=== PATIENT | male | born 1985 | race African-American/Black ===

== ENCOUNTER 2017-03-09 21:47 | Emergency (ER) | payer OTHER ==
[~2017-03-09] VITALS: Ht 165.1 cm; Wt 63.0 kg
[2017-03-09 21:56] VITALS: BP 129/77
[2017-03-09] MEDS ORDERED: ACETAMINOPHEN 650 MG/20.3 ML UDC PO ONE (23:00)
[2017-03-09] MEDS ORDERED: ACETAMINOPHEN 325 MG TABLET ONE (23:01)
== END 2017-03-09 23:10 | disposition home or self-care (01) ==
LOC: ER 21:51
DX: R51 Headache (principal); B86 Scabies; F31.9 Bipolar disorder, unspecified; F20.9 Schizophrenia, unspecified
CPT/HCPCS: A4606; Z7610

== ENCOUNTER 2018-03-28 16:22 | Emergency (ER) | payer OTHER ==
[~2018-03-28] VITALS: Ht 167.6 cm; Wt 65.8 kg
[2018-03-28 16:22] VITALS: BP 125/75
--- NOTE | 2018-03-28 17:07 | NUR ---
PT AGITATED REFUSING TO LEAVE ED. 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 SUPP AWARE.
--- NOTE | 2018-03-28 17:19 | NUR ---
PT REFUSED TO SIGN ACI.
== END 2018-03-28 17:19 | disposition home or self-care (01) ==
LOC: ER 16:26
DX: B85.0 Pediculosis due to Pediculus humanus capitis (principal); F31.9 Bipolar disorder, unspecified; F20.9 Schizophrenia, unspecified

== ENCOUNTER 2019-12-25 13:51 | Emergency (ER) | payer OTHER ==
[~2019-12-25] VITALS: Ht 167.6 cm; Wt 72.6 kg
--- NOTE | 2019-12-25 14:05 | NUR ---
BIBS FROM [facility] LOD[facility] TO ER BED 6. AAOX4. NOT IN RESP DISTRESS, BREATHING EVEN AND UNLABORED. TALKING IN FULL SENTENCES. PT BROUGHT IN FOR COUGH W/ PAIN ON HIS CHEST WHEN COUGHING FOR THE PAST MONTH WORST TODAY. PT IS NOTED WITH COUGH UPON ASSESSMENT. PT IS AFEBRILE. MD WAS AT THE BEDSIDE FOR EVAL. ORDERS RECEIVED NOTED AND CARRIED OUT
[2019-12-25] MEDS ORDERED: IBUPROFEN 600 MG TABLET ONE (14:27)
[2019-12-25] MEDS ORDERED: ACETAMINOPHEN ES 500 MG TABLET ONE (14:27)
[2019-12-25] MEDS ORDERED: ACETAMINOPHEN ES 500 MG TABLET PO ONE (14:30)
[2019-12-25] MEDS ORDERED: IBUPROFEN 600 MG TABLET PO ONE (14:30)
--- NOTE | 2019-12-25 15:27 | NUR ---
Patient discharged to home in stable condition. Written and verbal after care instructions given. Patient verbalizes understanding of instruction. Pt ambulatory with a steady gait. Homeless waiver signed by the pt. Provided with food and bus pass.
[2019-12-25 15:28] VITALS: BP 117/66
== END 2019-12-25 15:31 | disposition home or self-care (01) ==
LOC: ER 14:00
DX: J40 Bronchitis, not specified as acute or chronic (principal); R00.0 Tachycardia, unspecified; R05 Cough; R06.02 Shortness of breath; Z20.828 Contact with and (suspected) exposure to other viral communicable diseases; Z59.0 Homelessness; F31.9 Bipolar disorder, unspecified; F20.9 Schizophrenia, unspecified
CPT/HCPCS: 71045; 87426; 93005; 99285; C9803